=== PATIENT | female | born 1965 | race Two or more races ===

== ENCOUNTER → 2024-12-02 | Outpatient (CLI) | payer MEDICAID, SELFPAY ==
--- NOTE | 2024-12-02 14:00 | ECHO_ITS ---
Transthoracic Echo Report Ht (in): 59 Wt (lb): 166 Exam Location: Echo Lab Status: Preadmit Embedded Engineer: EMILY Reno^^^^ Indications: Procedure Performed: BP: / HR: 82 Technical Quality: Fair MEASUREMENTS (Male / Female) Normal Values 2D ECHO LV Diastolic Diameter PLAX 4.1 cm 4.2 - 5.9 / 3.9 - 5.3 cm LV Systolic Diameter PLAX 2.8 cm IVS Diastolic Thickness 1.1 cm 0.6 - 1.0 / 0.6 - 0.9 cm LVPW Diastolic Thickness 1.1 cm 0.6 - 1.0 / 0.6 - 0.9 cm LV Relative Wall Thickness 0.5 LVOT Diameter 1.5 cm Aortic Root Diameter 2.8 cm LA Systolic Diameter LX 3.6 cm 3.0 - 4.0 / 2.7 - 3.8 cm LA Volume Index 20.6 cm?/m? 16 - 28 cm?/m? Ascending Aorta Diameter 2.9 cm DOPPLER AV Peak Velocity 140.5 cm/s AV Peak Gradient 7.9 mmHg AV Mean Gradient 4.0 mmHg AV Velocity Time Integral 23.0 cm AI Peak Velocity 329.5 cm/s AI Peak Gradient 43.4 mmHg AI Pressure Half Time 931.0 ms LVOT Peak Velocity 135.0 cm/s LVOT Peak Gradient 7.3 mmHg LVOT Velocity Time Integral 25.0 cm LVOT Cardiac Index 2005.8 cm?/min?m? AV Area Cont Eq vti 1.9 cm? AV Area Cont Eq pk 1.7 cm? MV Area PHT 3.3 cm? Mitral E Point Velocity 69.7 cm/s Mitral A Point Velocity 106.0 cm/s Mitral E to A Ratio 0.7 LV E' Lateral Velocity 9.3 cm/s Mitral E to LV E' Lateral Ratio 7.5 LV E' Septal Velocity 6.8 cm/s Mitral E to LV E' Septal Ratio 10.2 TR Peak Velocity 227.5 cm/s TR Peak Gradient 20.7 mmHg PV Peak Velocity 110.0 cm/s PV Peak Gradient 4.8 mmHg RVOT Peak Velocity 59.9 cm/s FINDINGS Left Ventricle Normal left ventricular size, wall thickness, systolic function with no obvious regional wall motion abnormalities. There is grade I diastolic dysfunction of the left ventricle (impaired relaxation pattern). The left ventricular ejection fraction is normal, estimated at 60-65%. Right Ventricle The right ventricle is normal in size and systolic function. The estimated right ventricular systolic pressure, 25 mmHg. Left Atrium The left atrium is normal by two-dimensional, color flow and Doppler imaging with no structural abnormalities, no thrombus formation present. Right Atrium The right atrium is normal by two-dimensional imaging, color flow and Doppler imaging with no structural abnormalities, no thrombus formation present. Atrial Septum The interatrial septum appears normal with no evidence of a shunt. Aorta The aorta is normal by two-dimensional, color flow and Doppler interrogation. Mitral Valve Mild mitral regurgitation. Mild mitral annular calcification. Aortic Valve Aortic valve sclerosis. Mild aortic valve regurgitation. Tricuspid Valve There is mild tricuspid valve regurgitation. Pulmonic Valve Trivial pulmonic valve regurgitation. Vessels The pulmonary artery appears normal. The inferior vena cava pulmonary and hepatic veins appear normal. Pericardium The pericardium is normal by two-dimensional imaging. There is no significant pericardial effusion. CONCLUSIONS indication: SOB The transthoracic study is normal by two-dimensional, color flow imaging and Doppler interrogation. Normal left ventricular size and function. Approximate ejection fraction is 65%. RV appears normal with RVSP 25 mmHg. AOV sclerosis Mild ortic regurgitation Trace mitral and trace tricuspid regurgitation . Fabiola Hall (Electronically Signed) Final Date: 03 Dec 2024 18:47
== END | disposition home or self-care (01) ==
PROVIDERS: PCP Internal Medicine Hematology & Oncology; Referring Provider Internal Medicine Hematology & Oncology; Visit Provider Internal Medicine Hematology & Oncology
DX: I08.1 Rheumatic disorders of both mitral and tricuspid valves (principal); R06.02 Shortness of breath
CPT/HCPCS: 93306